=== PATIENT | male | born 1975 | race American Indian/Alaskan Native ===

== ENCOUNTER 2019-03-11 21:25 | Emergency (ER) | payer OTHER, MEDICAID ==
[~2019-03-11] VITALS: Ht 177.8 cm; Wt 99.3 kg
[~2019-03-11 21:25] MED LIST: ATOR10TA68 PO; CIPR-211 PO; CLIN300C11 PO; HYDR-3111 PO; METH500T6 PO; NAPR-688 PO; PARO40TA PO; PREG100C PO; [UNRECOGNIZED DRUG - CODE] SQ
[2019-03-11 21:35] VITALS: BP_SYST 136
[2019-03-12] MEDS ORDERED: HYDROcodone/ACETAMIN 5-325 MG TAB (NORCO/ VICODIN) PO ONE (03:00)
[2019-03-12 03:20] VITALS: BP_SYST 120
== END 2019-03-12 03:20 | disposition home or self-care (01) ==
LOC: SED 21:25
DX: M25.562 Pain in left knee (principal); G35 Multiple sclerosis; Z88.4 Allergy status to anesthetic agent; Z79.899 Other long term (current) drug therapy
CPT/HCPCS: 73564; 99283